=== PATIENT | female | born 1950 | race Caucasian/White ===

== ENCOUNTER 2016-10-15 19:10 | Observation (INO) | payer MEDICARE, OTHER ==
[2016-10-15 19:51] VITALS: BMI 24.0
[2016-10-15] MEDS ORDERED: LORAZEPAM 1 MG TAB PO PRN (19:57)
[2016-10-15] MEDS ORDERED: ONDANSETRON HCL 4 MG ODT TAB PO PRN (19:57)
[2016-10-15] MEDS ORDERED: IBUPROFEN 400 MG TAB PO PRN (19:57)
[2016-10-15] MEDS ORDERED: GUAIFENESIN 200 MG/10 ML UDC PO PRN (19:57)
[2016-10-15] MEDS ORDERED: ACETAMINOPHEN 325 MG/TAB TABLET PO PRN (19:57)
[2016-10-15] MEDS ORDERED: Docusate Sodium 100 MG CAP PO PRN (19:57)
[2016-10-15] MEDS ORDERED: TEMAZEPAM 15 MG CAP PO PRN (19:57)
[2016-10-15] MEDS ORDERED: MAGNESIUM HYDROXIDE 30 ML BOTTLE PO PRN (19:57)
[2016-10-15] MEDS ORDERED: NICOTINE 21 MG PATCH TOP SCH (20:00)
--- NOTE | 2016-10-15 20:01 | EDPRACDOC ---
- General Information Chief Complaint: Psychiatric Illness Stated Complaint: SI Time Seen by Provider: 10/15/16 19:26 Information Source: Patient, Copying Machine Mechanic Mode of Arrival: Ambulance Home Medications: Home Medications Alendronate Sodium [Fosamax] 70 mg PO SA 10/15/16 Citalopram (anti-depressant) [Celexa] 20 mg PO DAILY 10/15/16 Estradiol [Estrace] 2 mg PO DAILY 10/15/16 Meloxicam 15 mg PO DAILY PRN 10/15/16 Simvastatin [Zocor] 20 mg PO QHS 10/15/16 Trazodone HCl [Desyrel] 50 mg PO QHS 10/15/16 Allergies/Adverse Reactions: Allergies Allergy/AdvReac Type Severity Reaction Status Date / Time morphine Allergy Anaphylaxis Verified 10/15/16 19:38 * Penicillins Allergy Anaphylaxis Verified 10/15/16 19:38 * - History of Present Illness Onset: 1800 HPI: Pt brought by EMS c/o depression x 2 months, and tonight pt drank "a little" and took a "few" celexa tablets. States she wanted to go to sleep and not wake up. No physical complaints. Med hx = HDL, insomnia, depression. No recent surgeries. 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 Past Medical History - History Reviewed Yes Nurses notes reviewed and agree except as marked - Patient Medical History Cardiac History: Reports: Hypercholesterolemia Psychological History: Reports: Depression Systemic History: Denies: Cancer - Social Medical History Smoking Status: Heavy tobacco smoker (5 or more cigarettes/day or daily pipe/ cigar) EDM Review of Systems - Review of Systems ROS Negative Except as Marked: Yes All systems reviewed and were negative except as marked Psychiatric: Depression, Insomnia, Suicidal - Physical Exam Constitutional: Alert, Somnolent Oriented to: Time, Person, Place Last recorded Vital Signs: Last Vital Signs Temp 97.6 F 10/15/16 19:38 Pulse 84 10/15/16 19:38 Resp 20 10/15/16 19:38 BP 137/70 10/15/16 19:38 Pulse Ox 93 10/15/16 19:38 Oxygen Pulse Oxygen Saturation 93 O2 Device Room Air Oxygen Flow Rate Fraction of Inspired Oxygen ( FIO2) - HEENT Head: Normal Eye Exam: negative: Conjunctival Injection, Scleral Icterus Oropharynx: negative: Drooling TMJ: Normal Nose: No Symptoms Reported Neck: Normal - Respiratory/Cardiovascular Respiratory: Normal - CTA Cardiovascular: Normal - GI Tenderness: Non tender - Musculoskeletal Back: Normal Extremities: Normal - Integumentary Skin: Normal - Neurologic Mood Description: Anxious Thought: Coherent Initial Evaluation Apperance: Neat Attitude: Cooperative Mood: Sad, Anxious Affect: Congruent w/ mood Insight: Good Judgement: Good Memory Description: Intact Depressive Symptoms: Reports: Crying episodes, Hopelessness, Sadness Delusion Description: Reports: Not Present Hallucination Type: Reports: None Hallucinations Severity: Reports: None Hallucinations affecting more than one sensory system: No - Results 10/15/16 20:40 10/15/16 20:40 - EKG EKG #1 EKG Time: 22:05 -: Yes EKG interpreted by me Rate: bpm: 69 Rhythm: NSR ST: Normal - Departure Disposition: Admit to Condition: Stable Final Diagnosis: Suicidal ideation Education/Counseling Given To: Patient Decision to Transfer Time: 23:06 (mental health)
[2016-10-15 20:45] LABS: AUTOMATED MONOCYTE 7.2 % (3-10); MPV 7.5 fL (7.4-10.4)
[2016-10-15 20:47] LABS: AUTOMATED BASOPHIL 2.7 % (0-2); AUTOMATED EOSINOPHIL 1.2 % (0-5); AUTOMATED NEUTROPHIL 64.9 % (45-76)
[2016-10-15 20:57] LABS: BLOOD UREA NITROGEN 12 MG/DL (7-17); CALCIUM 9.2 MG/DL (8.4-10.2); CALCULATED OSMOLALITY 270 MOs/Kg (270-290); CHLORIDE 103 mEq/L (98-107); GLUCOSE 87 MG/DL (70-99); SODIUM LEVEL 141 mEq/L (137-146); TOTAL PROTEIN 6.9 G/DL (6.3-8.2)
[2016-10-15 21:17] LABS: ETOH-MGDL 159 mg/dL
[2016-10-15 21:27] LABS: LEUKOCYTES/URINE NEG (NEGATIVE); NITRITE/URINE NEG (NEGATIVE); URINE OCCULT BLOOD 2+ (NEG/TRACE); WBC/URINE 0-2 (0-5)
[2016-10-15 21:36] LABS: ALL NEG? YES; MDMA* NEG (NEGATIVE); METHAMPHETAMINES NEG (NEGATIVE); OXYCODONE NEG (NEGATIVE)
[2016-10-16] MEDS ORDERED: ALENDRONATE SODIUM 70 MG PO SCH (08:30)
--- NOTE | 2016-10-16 08:30 | EDTUNOTE ---
Initial Evaluation Apperance: Neat Attitude: Cooperative Mood: Sad, Anxious Affect: Congruent w/ mood Insight: Good Judgement: Good Memory Description: Intact Depressive Symptoms: Reports: Crying episodes, Hopelessness, Sadness Delusion Description: Reports: Not Present Hallucination Type: Reports: None Hallucinations Severity: Reports: None Hallucinations affecting more than one sensory system: No - SOAP Note Patient Problems: Active Problems Suicidal ideation (Acute) R45.851 SOAP Note: 10/16/16 0820 Day 2 S: 65 y.o F presented to ED for increased depression with SI. Pt allegedly took 5-9 celexa and drank some alcohol. Pt states she is doing "ok" this morning. O: Vital Signs: Temp:98.0 F HR: 73 BP: 146/69 RR: 18 Pox: 95%. Resting comfortably CTA RRR A: Major depression SI P: Continue meds as directed for further stabilization.
[2016-10-16] MEDS ORDERED: ESTRADIOL 1 MG TAB PO SCH (09:00)
--- NOTE | 2016-10-16 10:54 | TUDEPART ---
Discussion of OBS Stay: Pt evaluated by TA, cleared for discharge home, Pt contracted for safety with family who are very supportive. Disposition: Home Condition: Stable Instructions: Depression (DC), Suicide Prevention for Adults (DC) Education/Counseling Given To: Patient, Family Member Education/Counseling Given Regarding: Diagnosis, Treatment, Follow Up Forms: Patient Discharge Instructions Follow-up/Additional Instructions: remove all alcohol from the home, keep medications locked away safely follow up with [facility] as recommended - Physical Exam Constitutional: Alert, Somnolent Oriented to: Time, Person, Place Last recorded Vital Signs: Last Vital Signs Temp 98.0 F 10/16/16 06:12 Pulse 73 10/16/16 06:12 Resp 18 10/16/16 06:12 BP 146/69 10/16/16 06:12 Pulse Ox 95 10/16/16 06:12 Oxygen Pulse Oxygen Saturation 95 O2 Device Room Air Oxygen Flow Rate Fraction of Inspired Oxygen ( FIO2) - HEENT Head: Normal Eye Exam: negative: Conjunctival Injection, Scleral Icterus Oropharynx: negative: Drooling TMJ: Normal Nose: No Symptoms Reported - Respiratory/Cardiovascular Respiratory: Normal - CTA Cardiovascular: Normal - GI Tenderness: Non tender - Musculoskeletal Back: Normal Extremities: Normal - Integumentary Skin: Normal - Neurologic Mood Description: Anxious Thought: Coherent
[2016-10-16 12:23] VITALS: BP 152/71; PULSE 74; TEMP 98
[2016-10-16] MEDS ORDERED: SIMVASTATIN 20 MG TAB PO SCH (21:00)
[2016-10-16] MEDS ORDERED: TRAZODONE 50 MG TAB PO SCH (21:00)
== END 2016-10-16 12:35 | disposition home or self-care (01) ==
LOC: ED 19:10 → EDINP 19:58 → TUOBSINP 10-16 00:08
PROVIDERS: ADMIT Physician Assistant Medical; ATTEND Physician Assistant Medical
DX: F32.9 Major depressive disorder, single episode, unspecified (principal); E78.00 Pure hypercholesterolemia, unspecified; F17.200 Nicotine dependence, unspecified, uncomplicated; Z79.899 Other long term (current) drug therapy
CPT/HCPCS: 36415; 80053; 80307; 80329; 81001; 85025; 86592; 93005; 99284; A9270; G0378; J3490